=== PATIENT | female | born 1990 | race Caucasian/White ===

== ENCOUNTER 2019-06-22 06:14 | Inpatient (IN) | payer OTHER ==
[~2019-06-22] VITALS: Ht 170.2 cm; Wt 84.1 kg
[2019-06-22] MEDS ORDERED: OXYTOCIN 30U/ 0.9% NaCL 500ML 500 ML IV ONE (06:16)
[2019-06-22] MEDS ORDERED: D5%-LACTATED RINGERS 1,000 ML IV SCH (06:19)
[2019-06-22 06:20] VITALS: BP 128/75
[2019-06-22] MEDS ORDERED: METOCLOPRAMIDE 5 MG/ML, 2ML IVPush PRN (06:30)
[2019-06-22] MEDS ORDERED: ONDANSETRON 2MG/ML, 2ML IVPush PRN (06:30)
[2019-06-22] MEDS ORDERED: TERBUTALINE 1 MG/ML, 1ML SQ PRN (06:30)
[2019-06-22] MEDS ORDERED: SODIUM CITRATE/CITRIC ACID 30 ML UDC PO PRN (06:30)
[2019-06-22] MEDS ORDERED: FENTANYL PF 100 MCG/2ML IV PRN (06:30)
[2019-06-22] MEDS ORDERED: PLEASE ENTER ALLERGIES MC SCH (06:30)
[2019-06-22] MEDS ORDERED: TERBUTALINE 1 MG/ML, 1ML IVPush PRN (06:30)
[2019-06-22] MEDS ORDERED: FENTANYL PF 100 MCG/2ML IVPush PRN (06:30)
[2019-06-22] MEDS ORDERED: CALCIUM CARBONATE 500 MG TAB.CHEW PO PRN (06:30)
[2019-06-22] MEDS ORDERED: ALUMINUM/MAG/SIMETHICONE 30 ML UDC PO PRN (06:30)
[2019-06-22] MEDS ORDERED: SODIUM CHLORIDE FLUSH 10ML SYR IVF PRN (06:30)
[2019-06-22 06:49] LABS: MEAN CORPUSCULAR HEMOGLOBIN 26.5 pg (27.0-34.8); MEAN CORPUSCULAR HGB CONC 31.9 g/dL (32.4-35.8); MEAN CORPUSCULAR VOLUME 82.9 fL (80-100); MEAN PLATELET VOLUME 13.4 fL (7.4-10.4); PLATELET COUNT 185 x10^3/uL (130-400); RED BLOOD COUNT 5.14 x10^6/uL (3.82-5.3)
[2019-06-22] MEDS: LACTATED RINGERS 1,000 ML IV SCH ×2 (06:55→20:42)
[2019-06-22] MEDS ORDERED: LIDOCAINE 1%, 20ML ONE (07:04)
[2019-06-22] MEDS ORDERED: NEWBORN KIT ONE (07:04)
[2019-06-22] MEDS ORDERED: MISOPROSTOL 200 MCG TABLET ONE (07:05)
[2019-06-22] MEDS ORDERED: OXYTOCIN 30U/ 0.9% NaCL 500ML 500 ML ONE (07:05)
[2019-06-22] MEDS ORDERED: PREN1TAB60 PO (07:14)
[2019-06-22] MEDS ORDERED: VALA500T PO (07:14)
[2019-06-22] MEDS ORDERED: OXYTOCIN 30U/ 0.9% NaCL 500ML 500 ML IV PRN (07:15)
[2019-06-22 07:22] LABS: MD MORPH REVIEW ONLY
[2019-06-22 07:23] LABS: ANISOCYTOSIS 1+; BASOPHILS # (AUTO) 0.03 x10^3/uL (0-0.1); BASOPHILS % (AUTO) 0 % (0-1); EOSINOPHILS % (AUTO) 1 % (1-7); LYMPHOCYTES # (AUTO) 1.88 x10^3/uL (1-3.4); LYMPHOCYTES % (AUTO) 21 % (22-44); MICROCYTOSIS 1+; MONOCYTES % (AUTO) 5 % (2-9); NEUTROPHILS % (AUTO) 73 % (42-75); OVALOCYTES 1+
[2019-06-22 07:25] LABS: <PLATELET ESTIMATE> ADEQUATE; <PLT MORPHOLOGY> NORMAL PLT MORPH
[2019-06-22] MEDS ORDERED: FENTANYL/BUPIV./NS/PF 250 ML EPIDCONT SCH ×2 (07:32→19:30)
[2019-06-22] MEDS ORDERED: LACTATED RINGERS 1,000 ML IV SCH ×2 (07:32→19:30)
[2019-06-22] MEDS ORDERED: CALCIUM CARBONATE 500 MG TAB.CHEW ONE (07:45)
[2019-06-22] MEDS ORDERED: FENTANYL PF 500 MCG, BUPIVACAINE/PF 0.5%, 30ML 62.5 ML in SODIUM CHLORIDE 0.9% 177.5 ML EPIDCONT SCH (08:00)
[2019-06-22] MEDS ORDERED: LACTATED RINGERS 1,000 ML IVBOLUS PRN ×2 (08:00→19:30)
[2019-06-22] MEDS ORDERED: EPHEDRINE 50 MG/ML, 1ML IVPush PRN ×2 (08:00→19:30)
[2019-06-22] MEDS ORDERED: ACYCLOVIR MC SCH (11:30)
[2019-06-22] MEDS ORDERED: NALOXONE 0.4 MG/ML, 1ML IVPush PRN (19:30)
[2019-06-22] MEDS ORDERED: BUPIVACAINE 0.25% ONE (19:40)
[2019-06-22] MEDS ORDERED: ACYCLOVIR 400 MG TABLET HOMEMEDPO SCH (21:00)
[2019-06-23] MEDS ORDERED: CALCIUM CARBONATE 500 MG TAB.CHEW ONE (01:14)
[2019-06-23] MEDS ORDERED: IBUPROFEN 600 MG TABLET ONE (01:55)
[2019-06-23] MEDS ORDERED: OXYTOCIN 30U/ 0.9% NaCL 500ML 500 ML ONE (01:55)
[2019-06-23] MEDS ORDERED: OXYTOCIN 30U/ 0.9% NaCL 500ML 500 ML IV SCH (02:10)
[2019-06-23] MEDS: OXYTOCIN 30U/ 0.9% NaCL 500ML 500 ML IV SCH ×3 (02:10→22:10)
[2019-06-23] MEDS: IBUPROFEN 600 MG TABLET PO PRN ×3 (02:10→18:17)
[2019-06-23] MEDS ORDERED: MISOPROSTOL 200 MCG TABLET PO PRN (02:30)
[2019-06-23] MEDS ORDERED: ONDANSETRON 2MG/ML, 2ML IV PRN (02:30)
[2019-06-23] MEDS ORDERED: SIMETHICONE 80 MG CHEW TAB PO PRN (02:30)
[2019-06-23] MEDS ORDERED: OXYcodone/APAP 5/325MG TABLET PO PRN (02:30)
[2019-06-23] MEDS ORDERED: CALCIUM CARBONATE 500 MG TAB.CHEW PO PRN (02:30)
[2019-06-23 04:20] VITALS: BP 112/62
[2019-06-23] MEDS: ACYCLOVIR 400 MG TABLET HOMEMEDPO SCH ×3 (05:57→21:00)
[2019-06-23] MEDS: DOCUSATE 100 MG CAPSULE PO PRN (07:51)
[2019-06-23] MEDS: PRENATAL VIT/IRON/FA 1 EACH TABLET PO SCH (07:51)
[2019-06-23] MEDS: OXYcodone/APAP 5/325MG TABLET PO PRN ×3 (07:51→18:18)
[2019-06-23 08:00] VITALS: BP 118/73
[2019-06-23 09:41] LABS: MEAN CORPUSCULAR HEMOGLOBIN 26.9 pg (27.0-34.8); MEAN CORPUSCULAR HGB CONC 31.9 g/dL (32.4-35.8); MEAN CORPUSCULAR VOLUME 84.3 fL (80-100); MEAN PLATELET VOLUME 12.4 fL (7.4-10.4); PLATELET COUNT 142 x10^3/uL (130-400); RED BLOOD COUNT 4.42 x10^6/uL (3.82-5.3); RED CELL DISTRIBUTION WIDTH 29.4 % (9.6-15.2)
[2019-06-23 10:46] LABS: BASOPHILS # (AUTO) 0.02 x10^3/uL (0-0.1); BASOPHILS % (AUTO) 0 % (0-1); EOSINOPHILS # (AUTO) 0.09 x10^3/uL (0-0.4); EOSINOPHILS % (AUTO) 1 % (1-7); LYMPHOCYTES # (AUTO) 1.36 x10^3/uL (1-3.4); LYMPHOCYTES % (AUTO) 11 % (22-44); MD SCAN; MONOCYTES # (AUTO) 0.59 x10^3/uL (0.2-0.8); MONOCYTES % (AUTO) 5 % (2-9); NEUTROPHILS # (AUTO) 10.48 x10^3/uL (1.8-6.8); NEUTROPHILS % (AUTO) 84 % (42-75)
[2019-06-23 12:15] VITALS: BP 114/80
[2019-06-23 16:20] VITALS: BP 115/79
[2019-06-23 19:30] VITALS: BP 108/62
[2019-06-24] MEDS: IBUPROFEN 600 MG TABLET PO PRN ×2 (00:29→07:47)
[2019-06-24 00:31] VITALS: BP 117/64
[2019-06-24 04:00] VITALS: BP 111/62
[2019-06-24 07:32] VITALS: BP 111/75
[2019-06-24] MEDS: DOCUSATE 100 MG CAPSULE PO PRN (07:47)
[2019-06-24] MEDS: PRENATAL VIT/IRON/FA 1 EACH TABLET PO SCH (07:48)
[2019-06-24 07:50] VITALS: BP 134/90
[2019-06-24] MEDS: OXYTOCIN 30U/ 0.9% NaCL 500ML 500 ML IV SCH (07:50)
[2019-06-24] MEDS: ACYCLOVIR 400 MG TABLET HOMEMEDPO SCH (08:06)
[2019-06-24] MEDS ORDERED: IBUP-1222 PO (09:45)
[2019-06-24] MEDS ORDERED: DOCU-131 PO (09:45)
[2019-06-24] MEDS ORDERED: OXYC-302 PO (09:45)
== END 2019-06-24 12:00 | disposition home or self-care (01) | DRG 768 ==
LOC: LDIP 06:14 → 2NW 06-23 03:49
PROVIDERS: ADMIT Obstetrics & Gynecology; ATTEND Obstetrics & Gynecology
PROC: 10E0XZZ Delivery of Products of Conception, External Approach (ICD-10-PCS; principal; 2019-06-23)
PROC: 0DQR0ZZ Repair Anal Sphincter, Open Approach (ICD-10-PCS; 2019-06-23)
PROC: 10907ZC Drainage of Amniotic Fluid, Therapeutic from Products of Conception, Via Natural or Artificial Opening (ICD-10-PCS; 2019-06-23)
PROC: 3E0R3BZ Introduction of Anesthetic Agent into Spinal Canal, Percutaneous Approach (ICD-10-PCS; 2019-06-23)
PROC: 00HU33Z Insertion of Infusion Device into Spinal Canal, Percutaneous Approach (ICD-10-PCS; 2019-06-23)
DX: O70.20 Third degree perineal laceration during delivery, unspecified (principal); Z37.0 Single live birth; Z3A.39 39 weeks gestation of pregnancy
CPT/HCPCS: 36415; 85025; 86592; 86850; 86900; G0378; J2590; J7120